=== PATIENT | female | born 1970 | race Caucasian/White ===

== ENCOUNTER → 2020-09-22 | Outpatient (REF) ==
--- NOTE | 2020-09-22 14:29 | REP ---
INDICATION: DISABILITY COMPARISON: None TECHNIQUE: Five views FINDINGS: The compartments are symmetric and well maintained. There is no fracture, dislocation, or subluxation. There is no destructive osseous lesion. IMPRESSION: Within normal limits <Electronically signed by Danyel Martin > 09/22/20 [id number]
== END ==
LOC: M PLAIMG 11:20
PROVIDERS: ATTEND Internal Medicine
DX: M25.562 Pain in left knee (principal); M06.9 Rheumatoid arthritis, unspecified